=== PATIENT | male | born 1985 | race Hispanic/Latino ===

== ENCOUNTER 2017-02-23 14:39 | Emergency (ER) | payer OTHER ==
[~2017-02-23] VITALS: Ht 185.4 cm; Wt 96.4 kg
[2017-02-23 14:40] VITALS: BP 139/82
[2017-02-23 15:48] LABS: BASO % 0.2 % (0.0-1.0); IMMATURE GRANULOCYTE % 0.4 % (0-0); LYMPH # 0.9 10^3/uL (1.5-4.5); MEAN CORPUSCULAR HEMOGLOBIN 31.3 pg (27.0-33.0); MEAN CORPUSCULAR HGB CONC 35.3 g/dl (32.0-36.5); MEAN CORPUSCULAR VOLUME 88.6 fl (80.0-96.0); MONO % 9.3 % (0.0-5.0); NEUTROPHILS % 82.1 % (36.0-66.0); PLATELET COUNT, AUTOMATED 188 10^3/uL (150-450); RED CELL DISTRIBUTION WIDTH 12.3 % (11.5-14.5); WHITE BLOOD COUNT 10.9 10^3/uL (4.0-10.0)
[2017-02-23 16:09] LABS: ANION GAP 3 MEQ/L (8-16); BLOOD UREA NITROGEN 13 MG/DL (7-18); CALCIUM LEVEL 8.7 MG/DL (8.5-10.1); CARBON DIOXIDE LEVEL 33 MEQ/L (21-32); CHLORIDE LEVEL 100 MEQ/L (98-107); CREATININE FOR GFR 1.25 MG/DL (0.70-1.30); GLOMERULAR FILTRATION RATE > 60.0 (>60); GLUCOSE, FASTING 115 MG/DL (70-105); POTASSIUM SERUM 3.7 MEQ/L (3.5-5.1); SODIUM LEVEL 136 MEQ/L (136-145)
[2017-02-23] MEDS ORDERED: ISOVUE-370 76% 100ML VIAL (Q9967) As Ordered ONE (16:18)
--- NOTE | 2017-02-23 17:15 | REP ---
CT NECK WITH CONTRAST: HISTORY: Tonsillar abscess. CONTRAST: Isovue-[id number], 75 mL There is enlargement of the tonsils greater on the right than on the left. There is inferior extension of the tonsillar enlargement into the lateral spain of the oropharynx. There is extension on the right into the right lateral aspect of the soft palate. There is minimal mass effect on the oropharynx. The naso- and hypopharynx, larynx and subglottic trachea are normal in appearance. The salivary glands are normal in size and density. An enlarged lymph node 1.4 cm in width is present in the right internal jugular chain at the level of the [place]- and hypopharynx. An enlarged lymph node 1.3 cm in width is present in the left internal jugular chain at the level of the hypopharynx. An enlarged lymph node 1.1 cm in width is present in the right posterior triangle at the level of the [place]- and hypopharynx. Small lymph nodes less than 1 cm in size are present in the right posterior triangle, submandibular and submental areas. The lung apices are clear. The visualized sinuses are clear. IMPRESSION: The above findings are consistent with tonsillitis and lymphadenitis. There is minimal mass effect on the oropharynx. Signed by Dejon French MD 02/24/2017 08:51 A
[2017-02-23] MEDS ORDERED: AMOX500C PO (17:30)
== END 2017-02-23 17:37 | disposition home or self-care (01) ==
LOC: M ED 14:39
DX: J03.90 Acute tonsillitis, unspecified (principal); R50.9 Fever, unspecified
CPT/HCPCS: 36415; 70491; 80048; 83605; 85025; 99284; Q9967

== ENCOUNTER 2017-07-31 12:01 | Emergency (ER) | payer OTHER ==
[2017-07-31] MEDS: TETRACAINE 0.5% OPHTH SOLN 4ML OD (12:30)
[2017-07-31] MEDS ORDERED: ERYTHROMYCIN OPHTH OINT As Ordered (12:36)
[2017-07-31] MEDS: ERYTHROMYCIN OPHTH OINT OD (12:50)
== END 2017-07-31 12:56 | disposition home or self-care (01) ==
LOC: M ED 12:01
DX: T15.01XA Foreign body in cornea, right eye, initial encounter (principal); W31.1XXA Contact with metalworking machines, initial encounter; Y92.89 Other specified places as the place of occurrence of the external cause
CPT/HCPCS: 65220